=== PATIENT | female | born 1960 | race Caucasian/White ===

== ENCOUNTER 2017-01-23 17:09 | Inpatient (IN) | payer OTHER ==
[~2017-01-23 17:09] MED LIST: AMOXICILLIN500 MG PO; DAILY VALUE1 EACH PO; HYDROCHLOROTHIA25 MG PO; HYDROCODON-ACE1 EAC4 PO; NORVASC10 MG PO; POLYETHYLENE GL17 GM PO; REMERON30 MG PO; SANTYL15 GM TOP; VITAMIN C500 M1 PO; ZESTRIL40 MG PO; ZOLOFT100 MG PO
[2017-01-27] MEDS ORDERED: ZOLOFT100 MG PO (13:10)
[2017-01-27] MEDS ORDERED: MIRTAZAPINE15 MG PO (13:11)
[2017-01-27] MEDS ORDERED: PROBIOTIC1 EAC1 PO (13:11)
[2017-01-27] MEDS ORDERED: JUVEN PACKET1 EACH PO (13:11)
[2017-01-27] MEDS ORDERED: DAILY VITE1 EACH PO (13:12)
[2017-01-27] MEDS ORDERED: VITAMIN C500 M1 PO (13:12)
[2017-01-27] MEDS ORDERED: MAGNESIUM ALUMIN1 GM PO (13:14)
[2017-01-27] MEDS ORDERED: NORCO 5-325 TA1 EACH PO (13:15)
[2017-01-27] MEDS ORDERED: AMBIEN5 MG PO (13:16)
[2017-01-27] MEDS ORDERED: ACETAMINOPHEN650 MG RC (13:16)
[2017-01-27] MEDS ORDERED: ACETAMINOPHEN325 MG PO (13:16)
[2017-01-27] MEDS ORDERED: PHENERGAN25 M1 PO (13:17)
[2017-01-27] MEDS ORDERED: ZOFRAN4 MG PO (13:19)
[2017-01-27] MEDS ORDERED: VANCOMYCIN HCL1 GM IV (13:20)
[2017-01-27] MEDS ORDERED: VANCOMYCIN HCL125 MG PO (13:20)
== END 2017-01-28 10:05 | DRG 853 ==
LOC: ER 17:09 → MED 19:26
PROVIDERS: ADMIT Internal Medicine
PROC: 0QB30ZX Excision of Left Pelvic Bone, Open Approach, Diagnostic (ICD-10-PCS; principal; 2017-01-26)
PROC: 02HV33Z Insertion of Infusion Device into Superior Vena Cava, Percutaneous Approach (ICD-10-PCS; 2017-01-26)
PROC: B548ZZA Ultrasonography of Superior Vena Cava, Guidance (ICD-10-PCS; 2017-01-26)
PROC: 0R9J3ZZ Drainage of Right Shoulder Joint, Percutaneous Approach (ICD-10-PCS; 2017-01-27)
DX: A41.9 Sepsis, unspecified organism (principal); L89.324 Pressure ulcer of left buttock, stage 4; A04.7 Enterocolitis due to Clostridium difficile; M86.8X8 Other osteomyelitis, other site; G82.20 Paraplegia, unspecified; N39.0 Urinary tract infection, site not specified; E87.6 Hypokalemia; I10 Essential (primary) hypertension; Q05.9 Spina bifida, unspecified; F41.9 Anxiety disorder, unspecified; F32.9 Major depressive disorder, single episode, unspecified; Z79.899 Other long term (current) drug therapy; Z87.891 Personal history of nicotine dependence; Z93.2 Ileostomy status; M25.511 Pain in right shoulder; M75.21 Bicipital tendinitis, right shoulder
CPT/HCPCS: 36415; 87502; 87507; A9503; C1751; G0260; J0696; J1650; J2550; J3370; J7050

== ENCOUNTER 2017-01-23 17:09 | Emergency (ER) | payer OTHER | END 2017-01-23 19:25 | disposition critical access hospital (66) | LOC: ER 17:09 | DX: N39.0 Urinary tract infection, site not specified (principal); L89.229 Pressure ulcer of left hip, unspecified stage; R50.9 Fever, unspecified; F32.9 Major depressive disorder, single episode, unspecified; F41.9 Anxiety disorder, unspecified; I10 Essential (primary) hypertension; Z87.891 Personal history of nicotine dependence; Z90.89 Acquired absence of other organs; Z90.710 Acquired absence of both cervix and uterus; Z79.899 Other long term (current) drug therapy | CPT/HCPCS: 36415; 51701; 96361; 96365; 96375; J0696 ==

== ENCOUNTER 2017-04-05 15:19 | Emergency (ER) | payer OTHER ==
[~2017-04-05 15:19] MED LIST changes: +ACETAMINOPHEN325 MG PO; +ACETAMINOPHEN650 MG RC; +AMBIEN5 MG PO; +DAILY VITE1 EACH PO; +JUVEN PACKET1 EACH PO; +MAGNESIUM ALUMIN1 GM PO; +MIRTAZAPINE15 MG PO; +NORCO 5-325 TA1 EACH PO; +PHENERGAN25 M1 PO; +PROBIOTIC1 EAC1 PO; +VANCOMYCIN HCL1 GM IV; +VANCOMYCIN HCL125 MG PO; +ZOFRAN4 MG PO
== END 2017-04-05 21:00 | disposition short-term general hospital (02) ==
LOC: ER 15:19
DX: N39.0 Urinary tract infection, site not specified (principal); L89.313 Pressure ulcer of right buttock, stage 3; R00.0 Tachycardia, unspecified; F32.9 Major depressive disorder, single episode, unspecified; F41.9 Anxiety disorder, unspecified; I10 Essential (primary) hypertension; Z87.891 Personal history of nicotine dependence; Z90.710 Acquired absence of both cervix and uterus; Z79.899 Other long term (current) drug therapy
CPT/HCPCS: 36415; 96361; 96365; 96367; 96375; J2550; J3370